=== PATIENT | female | born 1965 | race Hispanic/Latino ===

== ENCOUNTER 2016-09-29 02:07 | Emergency (ER) | payer BC ==
[2016-09-29 02:21] VITALS: RESP 16; TEMP 98.7
[2016-09-29] MEDS ORDERED: Sodium Chloride 0.9% 1,000 ML IV STA ×2 (02:26→03:24)
[2016-09-29 02:51] VITALS: O2SAT 100
--- NOTE | 2016-09-29 03:16 | ED PDOC ---
HPI: Psych/Substance Abuse Time Seen by Provider: 09/29/16 02:16 Chief Complaint (Nursing): Substance Abuse Chief Complaint (Provider): Substance abuse History Per: Patient History/Exam Limitations: no limitations Onset/Duration Of Symptoms: Mins Current Symptoms Are (Timing): Still Present Suicide/Self Injury Attempted (Context): None Modifying Factor(s): Alcohol, Narcotics Severity: Moderate Associated Symptoms: Anxiety, Depression Involuntary Hold By: None Additional History Per: Patient Additional Complaint(s): The pt is a 50yo female with PMHx of anxiety and substance abuse, presents to the ED for evaluation s/p alcohol and heroin abuse today. Pt reports she chose to self-medicate her anxiety with heroin and alcohol. In room, pt expresses contrition, denies any medical complaints. She reports she "made poor choices" and at present is requesting for her vitals to be checked and discharged home. Of note, pt was not given narcan on field and is awake and alert. She denies any suicidal or homicidal ideation and offers no additional medical complaints. Past Medical History Reviewed: Historical Data, Nursing Documentation, Vital Signs Vital Signs: Last Vital Signs Temp 98.7 F 09/29/16 02:15 Pulse 95 H 09/29/16 02:41 Resp 16 09/29/16 02:41 BP 108/70 09/29/16 02:41 Pulse Ox 100 09/29/16 02:41 - Medical History PMH: Anxiety, Depression, HTN Denies: Chronic Kidney Disease - Family History Family History: States: Unknown Family Hx - Social History Alcohol: Occasional Drugs: Opiates (rare, last heroin use 03/28) - Immunization History Hx Tetanus Toxoid Vaccination: (to be verified) - Home Medications Home Medications: Ambulatory Orders Medication Instructions Recorded Cephalexin [cephalexin] 500 mg PO BID #10 cap 09/09/15 Silver Sulfadiazine 1% [Silvadene 1 appl TP DAILY #1 jar 09/09/15 1%] Permethrin [Elimite] 60 gm TP ONCE #1 cream..g. 07/21/16 Permethrin [Nix Complete] 324.86 ml MC DAILY #1 combo..pkg 07/21/16 hydrOXYzine HCl [Atarax] 25 mg PO BID #10 tab 07/21/16 - Allergies Allergies/Adverse Reactions: Allergies Allergy/AdvReac Type Severity Reaction Status Date / Time codeine Allergy RASH Verified 07/21/16 01:53 Review of Systems ROS Statement: Except As Marked, All Systems Reviewed And Found Negative Psych: Positive for: Anxiety. Negative for: Suicidal ideation Physical Exam - Reviewed Nursing Documentation Reviewed: Yes Vital Signs Reviewed: Yes - Physical Exam Appears: Positive for: Well, Non-toxic, No Acute Distress Head Exam: Positive for: ATRAUMATIC, NORMAL INSPECTION, NORMOCEPHALIC Skin: Positive for: Normal Color Eye Exam: Positive for: Normal appearance Neck: Positive for: Normal Cardiovascular/Chest: Positive for: Regular Rate, Rhythm Respiratory: Positive for: Normal Breath Sounds. Negative for: Respiratory Distress Neurologic/Psych: Positive for: Alert, Oriented - Laboratory Results Result Diagrams: 09/29/16 03:38 09/29/16 03:38 - ECG O2 Sat by Pulse Oximetry: 100 (RA) Pulse Ox Interpretation: Normal Medical Decision Making Medical Decision Making: Time: 0220 Impression: 50 yo female s/p heroin use Plan: * Pt to be observed in ER for an hour Time: 0324 Pt with stable vital signs. Is accompanied by nader lawson for discharge home. While discharging the pt, she had an episode of vomiting. Will order labs for additional workup. Scribe Attestation: Documented by Monica Camara acting as a scribe for Salomon Deleon MD. Provider Attestation: All medical record entries made by the Scribe were at my direction and personally dictated by me. I have reviewed the chart and agree that the record accurately reflects my personal performance of the history, physical exam, medical decision making, and the department course for this patient. I have also personally directed, reviewed, and agree with the discharge instructions and disposition. Disposition - Clinical Impression Clinical Impression: Heroin abuse - Disposition Disposition: Routine/Home Disposition Time: 03:30 Condition: STABLE Instructions: Narcotic Abuse (ED)
[2016-09-29 03:21] VITALS: BP 103/79; PULSE 89
[2016-09-29 04:02] LABS: BASO % 0.3 % (0.0-2.0); EOS # 0.2 K/uL (0.0-0.7); EOS % 1.3 % (0.0-4.0); HEMATOCRIT 42.9 % (34.0-47.0); LYMPH # 1.4 K/uL (1.0-4.3); LYMPH % 8.6 % (20.0-40.0); MEAN CELL VOLUME 90.1 fl (81.0-99.0); MEAN CORPUSCULAR HEMOGLOBIN 31.2 pg (27.0-31.0); MEAN CORPUSCULAR HGB CONC 34.6 g/dL (33.0-37.0); MEAN PLATELET VOLUME 8.2 fl (7.2-11.7); MONO % 6.6 % (0.0-10.0); NEUT # 13.2 K/uL (1.8-7.0); NEUT % 83.2 % (50.0-75.0); PLATELET COUNT 301 K/uL (130-400); RED CELL DISTRIBUTION WIDTH 13.8 % (11.5-14.5); WHITE BLOOD COUNT 15.8 K/uL (4.8-10.8)
[2016-09-29 04:12] LABS: ALB/GLOB RATIO 1.3 (1.0-2.1); ALCOHOL SERUM < 10 mg/dl (0-10); ALKALINE PHOSPHATASE 68 U/L (38-126); ALT/SGPT 25 U/L (9-52); AST/SGOT 27 U/L (14-36); BILIRUBIN,TOTAL 0.4 mg/dl (0.2-1.3); BLOOD UREA NITROGEN 14 mg/dl (7-17); CALCIUM 9.4 mg/dL (8.4-10.2); CARBON DIOXIDE 28 mmol/L (22-30); CHLORIDE 95 mmol/L (98-107); GFR AFRICAN-AMERICAN > 60; GLUCOSE,RANDOM 110 mg/dL (65-105); POTASSIUM 3.4 MMOL/L (3.6-5.0); SODIUM 136 mmol/l (132-148); TOTAL PROTEIN 8.7 G/DL (6.3-8.2)
[2016-09-29 06:19] LABS: EOSINOPHIL 1 % (0-7); NEUTROPHIL 81 % (42-75); TOTAL CELLS COUNTED 100
[2016-09-29 06:22] LABS: LARGE PLATELETS PRESENT; PLATELET CLUMPS PRESENT; SPHEROCYTES SLIGHT
== END 2016-09-29 04:55 | disposition home or self-care (01) ==
LOC: H.ER 02:07
DX: F11.10 Opioid abuse, uncomplicated (principal); F41.9 Anxiety disorder, unspecified; F32.9 Major depressive disorder, single episode, unspecified; I10 Essential (primary) hypertension
CPT/HCPCS: 80053; 85025; 96360; 99285; G0480; J2405; J7040

== ENCOUNTER 2018-03-31 12:11 | Emergency (ER) | payer BC ==
[2018-03-31 12:18] VITALS: RESP 16; TEMP 97
--- NOTE | 2018-03-31 12:57 | ED PDOC ---
HPI: Psych/Substance Abuse Time Seen by Provider: 03/31/18 12:42 Chief Complaint (Nursing): Substance Abuse Chief Complaint (Provider): Aggressive History Per: Patient, EMS History/Exam Limitations: no limitations Onset/Duration Of Symptoms: Days (today) Additional Complaint(s): Pt. found pulling plants and aggressive outside so brought to the ER. Pt. admits to drinking alcohol and using marijuana. Took her usual dose of ativan and vivance. Denies being suicidal or homicidal. No pain, weakness, dyspnea. No fever, cough. No back pain, abd pain. Past Medical History Reviewed: Nursing Documentation, Vital Signs Vital Signs: Last Vital Signs Temp 97.0 F L 03/31/18 12:16 Pulse 108 H 03/31/18 12:16 Resp 16 03/31/18 12:16 BP 137/82 03/31/18 12:16 Pulse Ox 97 03/31/18 12:16 - Medical History PMH: Anxiety, Depression, HTN Denies: Chronic Kidney Disease - Family History Family History: States: Unknown Family Hx - Social History Alcohol: Occasional Drugs: Cannabis - Immunization History Hx Tetanus Toxoid Vaccination: (to be verified) - Home Medications Home Medications: Ambulatory Orders Medication Instructions Recorded Cephalexin [cephalexin] 500 mg PO BID #10 cap 09/09/15 Silver Sulfadiazine 1% [Silvadene 1 appl TP DAILY #1 jar 09/09/15 1%] Permethrin [Elimite] 60 gm TP ONCE #1 cream..g. 07/21/16 Permethrin [Nix Complete] 324.86 ml MC DAILY #1 combo..pkg 07/21/16 hydrOXYzine HCl [Atarax] 25 mg PO BID #10 tab 07/21/16 - Allergies Allergies/Adverse Reactions: Allergies Allergy/AdvReac Type Severity Reaction Status Date / Time codeine Allergy RASH Verified 03/31/18 12:16 Review of Systems ROS Statement: Except As Marked, All Systems Reviewed And Found Negative Physical Exam - Reviewed Nursing Documentation Reviewed: Yes Vital Signs Reviewed: Yes - Physical Exam Appears: Positive for: Non-toxic, No Acute Distress Head Exam: Positive for: ATRAUMATIC, NORMAL INSPECTION, NORMOCEPHALIC Skin: Positive for: Normal Color, Warm, DRY Eye Exam: Positive for: EOMI, Normal appearance, PERRL ENT: Positive for: Normal ENT Inspection Neck: Positive for: Normal, Painless ROM Cardiovascular/Chest: Positive for: Regular Rate, Rhythm Respiratory: Positive for: CNT, Normal Breath Sounds Gastrointestinal/Abdominal: Positive for: Normal Exam, Soft. Negative for: Tenderness Back: Positive for: Normal Inspection. Negative for: L CVA Tenderness, R CVA Tenderness Extremity: Positive for: Normal ROM. Negative for: Tenderness, Pedal Edema Neurologic/Psych: Positive for: Alert, injury prevention coordinator II-XII, Oriented. Negative for: Motor/Sensory Deficits - ECG O2 Sat by Pulse Oximetry: 97 Pulse Ox Interpretation: Normal - Progress ED Course And Treament: 1443: Stable. AAOx3. Pain free. Has capacity to make decisions. Ambulating. Crisis saw pt. Does not meet criteria for admit. Will fu. Disposition - Clinical Impression Clinical Impression: Adjustment disorder, Alcohol abuse - Patient ED Disposition Is Patient to be Admitted: No Counseled Patient/Family Regarding: Studies Performed, Diagnosis, Need For Followup - Disposition Referrals: [facility] [Outside] - 04/01/18 Disposition: Routine/Home Disposition Time: 14:44 Condition: STABLE Additional Instructions: Return if not better in 3 days. You are medically and psychiatrically cleared for incarceration. Instructions: Adjustment Disorder, Alcohol Abuse and Alcoholism (DC)
[2018-03-31 13:41] LABS: BARBITURATES, UR NEGATIVE (NEGATIVE); BENZODIAZEPINES, UR NEGATIVE (NEGATIVE); OPIATES, UR NEGATIVE (NEGATIVE); PHENCYCLIDINE, UR NEGATIVE (NEGATIVE)
[2018-03-31 15:01] VITALS: BP 124/77; PULSE 106; O2SAT 99
== END 2018-03-31 15:00 ==
LOC: H.ER 12:11
DX: F10.10 Alcohol abuse, uncomplicated; F43.22 Adjustment disorder with anxiety; F32.9 Major depressive disorder, single episode, unspecified; I10 Essential (primary) hypertension; F12.90 Cannabis use, unspecified, uncomplicated
CPT/HCPCS: 81025; 99283; G0480